=== PATIENT | male | born 1975 | race Caucasian/White ===

== ENCOUNTER 2025-01-08 22:12 | Emergency (ER) | payer OTHER, SELFPAY ==
--- NOTE | 2025-01-08 | ECG_ITS ---
Test Reason : SEIZURE Blood Pressure : */* mmHG Vent. Rate : 111 BPM Atrial Rate : 111 BPM P-R Int : 156 ms QRS Dur : 74 ms QT Int : 346 ms P-R-T Axes : 27 0 18 degrees QTcB Int : 470 ms Sinus tachycardia Inferior infarct , age undetermined Abnormal ECG No previous ECGs available Referred By: Generic ED Physician Electronically Signed By: CONSTANZA REYES MD
--- NOTE | ~2025-01-08 | CT_ITS ---
CLINICAL HISTORY: Seizure, R O skull fracture, bleed, mass effect CT head without contrast Comparison: None Findings: No intra-axial mass, midline shift, hydrocephalus, or acute hemorrhage. No significant atrophy-like change or white matter disease. Mucosal thickening in the maxillary sinuses, left greater than right. The orbits are within normal limits. No skull fracture. IMPRESSION: No acute intracranial abnormality. Bilateral maxillary sinusitis. This document has been electronically signed by: Roly Man MD on 01/09/2025 00:06:30
[2025-01-08 22:25] VITALS: BP 134/79; BP 150/97; PULSE 109; PULSE 115; RESP 20; TEMP 36.8; O2SAT 96; O2SAT 97; BMI 28.8
--- NOTE | 2025-01-08 22:28 | PC.NURSE ---
pt states his orthopedic nurse will call for an update and gives verbal permission for staff to share medical information.
--- NOTE | 2025-01-08 22:29 | PC.NURSE ---
MD Mckeon at bedside for eval. seizure precautions in place. on hall monitor. iv established by EMS.
--- NOTE | 2025-01-08 22:52 | ED_ITS ---
HPI - Seizure General Chief Complaint: Seizure Stated Complaint: FROM WORK, SEIZURE HX OF SEIZURES PER EMS Time Seen by Provider: 01/08/25 22:26 Source: patient Mode of arrival: ambulatory Limitations: no limitations History of Present Illness ED Provider: Dr. Willy Mckeon HPI Narrative: 49-year-old male he was brought to emergency department for evaluation of witnessed seizure. 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 He was sitting in a chair in his office. His bar waiter/waitress was in the room with him. The bar waiter/waitress is also a nurse and witnessed a tonic-clonic seizure that lasted less than 2 minutes. The patient did bite his tongue and was incontinent of urine. Patient states he was had 2 seizures in the past more than 2 years ago. He states that after the 2nd seizure, he did have a workup at [facility] which include the CT scan and a EEG. He states that the workup was negative and he was not taking any antiseizure medications. The patient states that he does drink alcohol frequent and he has been drinking more alcohol than usual. He states he drinks at least 3-4 schnapps drinks, 3 to 4 times a week. Patient is currently complaining of pain in his tongue secondary to the bite wounds. He also states that he has nausea. He denies headache, neck pain, chest pain, abdominal pain, back pain. Related Data Previous Rx's ?Medication ?Instructions ?Recorded chlordiazepoxide HCl 25 mg capsule See Rx Instructions .Route 01/09/25 .COMPLEX #20 caps folic acid 1 mg tablet 1 mg PO DAILY 90 days #90 tabs 01/09/25 thiamine HCl (vitamin B1) 100 mg 100 mg PO DAILY 90 days #90 caps 01/09/25 capsule Allergies Allergy/AdvReac Type Severity Reaction Status Date / Time No Known Allergies Allergy Verified 01/08/25 22:28 Review of Systems 2 Review of Systems: Yes all other systems are reviewed and are negative [facility] Past Medical History [facility] Narrative: Social history: He does smoke cigarettes. He does drink alcohol frequently. He denies drug use. Physical Exam 2 Vital Signs: Vital Signs: Last Vital Signs Temp 98.3 F 01/08/25 22:25 Pulse 109 H 01/08/25 22:25 Resp 20 01/08/25 22:25 BP 134/79 01/08/25 22:25 Pulse Ox 96 01/08/25 22:25 O2 Del Method Room Air 01/08/25 22:25 BMI result Body Mass Index 28.8 Vital signs revealed an elevated heart rate of 109 otherwise unremarkable Exam: General: Awake, alert in no distress Head: Normocephalic, atraumatic EENT: PERRL, Lids normal, sclera normal, conjunctiva normal, nose normal , ears normal, throat without erythema or exudates, patient does have bite wounds on the left lateral and tip of his tongue. Neck: Supple, no adenopathy Lung: breath sounds symmetric, no wheezing, rales or rhonchi Chest: symmetric movement, nontender Heart: regular rate and rhythm, normal S1, S2 no murmurs or rubs Abdomen: soft, non-tender, nondistended, normal bowel sounds Back: no vertebral tenderness, no CVAT Extremities: no deformities, moves all extremities symmetrically Neuro: Awake, alert, oriented, normal speech, cranial nerves intact, moves all extremities symmetrically Psych: Pleasant, cooperative Medications Administered Generic Name Dose Route Start Last Admin Trade Name Freq PRN Reason Stop Dose Admin Sodium Chloride 1,000 mls @ 999 mls/hr 01/08/25 22:42 01/08/25 22:53 Ns IV 01/08/25 23:42 999 mls/hr .Q1H1M STA Administration Discontinued Medications Generic Name Dose Route Start Last Admin Trade Name Freq PRN Reason Stop Dose Admin Lorazepam 2 mg 01/08/25 22:41 01/08/25 22:53 Lorazepam 2 Mg/Ml Vial IVPUSH 01/08/25 22:42 2 mg ONCE ONE Administration Ondansetron HCl 4 mg 01/08/25 22:41 01/08/25 22:53 Ondansetron Hcl 4 Mg/2 Ml Vial IVPUSH 01/08/25 22:42 4 mg ONCE ONE Administration Medical Decision Making Medical Decision Making MDM Narrative: 49-year-old male he was brought to emergency department for evaluation of witnessed seizure while he was sitting in a chair in his office, seizure lasted less than 2 minutes. Patient did bite his tongue and was incontinent of urine. Patient was postictal and is now back to his baseline. Patient had 2 separate seizures greater than 2 years ago and had a negative workup at [facility]. He was not on antiseizure medications. Patient does drink significant amount of alcohol weekly he states he has been drinking more than usual. He denies drug use. Vital signs revealed an elevated blood pressure. Physical examination revealed bite wounds to his tongue otherwise was unremarkable. Differential diagnosis: ?Includes but is not limited to alcohol withdrawal seizures, alcohol related seizures, seizure disorder, closed head injury, concussion, drug use, anemia, electrolyte abnormalities Course: 22:59 Patient's nausea was treated with Zofran 4 mg IV. Patient was also given Ativan 2 mg IV to try to raise his seizure threshold and prevent a seizure while he was here in the emergency department. I did tell the patient that given his witnessed seizure in the fact that this is his 3rd seizure he should be on antiseizure medications. At this time the patient was refusing antiseizure medications despite my warning that he could have another seizure and that if he were in a precarious situation he could secondary to his seizure. Patient was placed on a cardiac and O2 saturation monitor. Seizure pads were placed on his stretcher as well. 23:41 My interpretation patient's laboratory evaluation is as follows: Thrombocytopenia 91,000, elevated MCV 98.2. Elevated AST of 156. Elevated bilirubin 1.7. Lipase was normal. Alcohol was below detectable limits. The patient's low platelet count, elevated MCV and elevated AST are consistent with his alcohol use disorder. The fact that the patient was alcohol was below detectable limits makes me concerned that the patient may have had an alcohol withdrawal seizure given the amount of alcohol that he normally drinks. Admission/Observation Consideration of admission/observation: Escalation of care including admission/observation considered Lab Data 01/08/25 23:01 01/08/25 23:01 Labs: Lab Results 01/08/25 Range/Units 23:01 WBC 5.7 (4.8-10.8) X10*3/uL RBC 4.40 L (4.60-5.80) X10*6/uL Hgb 16.1 (14.0-18.0) g/dl Hct 43.2 (42.0-52.0) % MCV 98.2 H (80.0-98.0) fL MCH 36.6 H (27.0-33.0) pg MCHC 37.3 H (31.0-36.0) g/dl RDW 14.3 (11.0-16.0) % Plt Count 91 L (160-400) X10*3/uL MPV 10.4 (9.4-12.4) fL Immature Gran % (Auto) Cancelled Neut % (Auto) Cancelled Lymph % (Auto) Cancelled Nye % (Auto) Cancelled Eos % (Auto) Cancelled Baso % (Auto) Cancelled Lymph # (Auto) Cancelled Nye # (Auto) Cancelled Eos # (Auto) Cancelled Baso # (Auto) Cancelled Abs Immat Gran (auto) Cancelled Absolute Neuts (auto) Cancelled Absolute Nucleated RBC 0.000 (0.0-0.012) X10*3/uL Nucleated RBC % (auto) 0.0 (0.0-0.2) /100WBC Neutrophils % (Manual) 86 H (45-73) % Band Neutrophils % 1 L (3-5) % Lymphocytes % (Manual) 5 L (20-40) % Monocytes % (Manual) 7 (2-11) % Basophils % (Manual) 1 (0-2) % Abs Neuts (Manual) 5.0 (2.0-8.3) X10*3/uL Lymphocytes # (Manual) 0.3 L (1.2-4.9) X10*3/uL Monocytes # (Manual) 0.4 (0.1-1.2) X10*3/uL Basophils # (Manual) 0.1 (0.0-0.2) X10*3/uL Platelet Estimate DECREASED (NORMAL) Large Platelets PRESENT Plt Morphology Comment NOTED RBC Morphology NOTED Acanthocytes (Spur) 1+ (0-2) /OIF Sodium 138 (135-145) mmol/L Potassium 4.3 (3.3-5.1) mmol/L Chloride 101 (96-108) mmol/L Carbon Dioxide 18 L (22-29) mmol/L Anion Gap 23 H (12-20) BUN 8 L (9-16) mg/dL Creatinine 0.93 (0.5-1.4) mg/dL Estim Creat Clear Calc 107.8 Estimated GFR > 60 Random Glucose 113 (60-115) mg/dL Lactic Acid 10.7 H* (0.5-2.0) mmol/L Calcium 8.9 (8.4-10.2) mg/dL Total Bilirubin 1.7 H (0.0-1.0) mg/dL AST 156 H (5-37) U/L ALT 30 (0-40) U/L Alkaline Phosphatase 89 (39-117) U/L Total Creatine Kinase 136 (38-174) U/L Total Protein 7.0 (6.5-8.0) g/dL Albumin 3.8 (3.5-5.0) g/dL Lipase 57 (8-78) U/L Ethyl Alcohol < 10 mg/dL Independent Interpretation I performed an independent interpretation of an: CT Scan Interpretation: CT head without contrast Comparison: None Findings: No intra-axial mass, midline shift, hydrocephalus, or acute hemorrhage. No significant atrophy-like change or white matter disease. Mucosal thickening in the maxillary sinuses, left greater than right. The orbits are within normal limits. No skull fracture. IMPRESSION: No acute intracranial abnormality. Bilateral maxillary sinusitis. This document has been electronically signed by: Roly Man MD on 01/09/2025 00:06:30 Discharge Plan Discharge Clinical Impression: Alcohol withdrawal seizure Patient Disposition: Home, Self-Care Instructions: Alcohol Withdrawal (ED) Additional Instructions: Your platelet count was low at 90,000 (normal is 160,00 to 400,000) Your mean corpuscular volume (MCV) was high at 98.2 (normal is 80 to 98) Your liver tests revealed an elevated AST at 156 (normal5 to 37) These abnormalities are caused by drinking too much alcohol. The alcohol that your drinking is starting to affect your bone marrow and your liver. If you keep drinking alcohol you will developed cirrhosis of the liver and this is how people from alcohol use disorder. The fact that you were not able to drink alcohol over the last 4 days caused you to withdrawal from alcohol and cause you to have an alcohol withdrawal seizure I am going to treat your alcohol withdrawal with a 4 day tapering course of Librium (chlordiazepoxide). Day 1: Take Librium 50 mg every 6 hours Day 2: Take Librium 50 mg every 8 hours Day 3: Take Librium 50 mg every 12 hours Day 4: Take Librium 50 mg at night Follow the directions on the prescription bottle that you get from the pharmacy. Alcohol causes malnutrition and depleted your body of the essential mineral, thiamine and folate. Take thiamine 100 mg daily and folic acid 1 gram daily for 3 months. I also want you to take a multivitamin with iron daily and magnesium supplement twice a day. Please return to the emergency department if your symptoms get worse or if you develop any symptoms that are concerning to you. In the emergency department you did receive Ativan 2 mg IV, Librium 100 mg orally for your alcohol withdrawal and ondansetron 4 mg IV for nausea and vomiting Alcohol use disorder You were seen in the Emergency Department today for treatment of alcohol use disorder.? You may have been given medications to help with your withdrawal symptoms.? Please do not drink alcohol with them. This is very dangerous and can cause respiratory depression or other adverse reactions depending on the medication. If you would like to cut down or stop your alcohol use please consider calling our outpatient Addiction Treatment office:? [facility] ([id number] [address] [place] [id number] ? You have also been given a list of treatment providers in the area that can assist as well.? If you experience seizures, vomiting blood, black stools, falls, severe headache, chest pain, fevers, trouble breathing, hallucinations or any other concerns you need to call 911 or seek immediate care. Please stay hydrated. Prescriptions: New thiamine HCl (vitamin B1) 100 mg capsule 100 mg PO DAILY 90 Days Qty: 90 0RF folic acid 1 mg tablet 1 mg PO DAILY 90 Days Qty: 90 0RF chlordiazepoxide HCl 25 mg capsule See Rx Instructions .ROUTE .COMPLEX Qty: 20 0RF Rx Instructions: Day 1:50mg po q6h, Day2: 50mg po q8h, Day3:50mg po q12h, Day4:50 mg po hs Print Language: Turkmen
[2025-01-08] MEDS: ondansetron HCL 4 MG/2 ML VIAL IVPUSH (22:53)
[2025-01-08] MEDS: 0.9 % Sodium Chloride 1,000 ML 999 ML IV (22:53)
[2025-01-08] MEDS: LORazepam 2 MG/ML VIAL IVPUSH (22:53)
[2025-01-08 23:08] LABS: Hematocrit 43.2 % (42.0-52.0); Hemoglobin 16.1 g/dl (14.0-18.0); Mean Corpuscular HGB Conc 37.3 g/dl (31.0-36.0); Mean Corpuscular Hemoglobin 36.6 pg (27.0-33.0); Mean Corpuscular Volume 98.2 fL (80.0-98.0); Mean Platelet Volume 10.4 fL (9.4-12.4); Red Cell Distribution Width 14.3 % (11.0-16.0); WBC ABN SCTR FOR CBC 1
[2025-01-08 23:14] LABS: White Blood Count 5.7 X10*3/uL (4.8-10.8)
[2025-01-08 23:25] LABS: Alanine Aminotransferase 30 U/L (0-40); Albumin Level 3.8 g/dL (3.5-5.0); Alkaline Phosphatase 89 U/L (39-117); Anion Gap 23 (12-20); Aspartate Amino Transferase 156 U/L (5-37); Bilirubin Total 1.7 mg/dL (0.0-1.0); Blood Urea Nitrogen 8 mg/dL (9-16); Calcium 8.9 mg/dL (8.4-10.2); Carbon Dioxide 18 mmol/L (22-29); Chloride 101 mmol/L (96-108); Creatinine Clr Calc Pharmacy 107.8; Estimated Glomerular Filt Rate > 60; Ethanol < 10 mg/dL; Glucose Random 113 mg/dL (60-115); Lactic Acid 10.7 mmol/L (0.5-2.0); Lipase 57 U/L (8-78); Potassium 4.3 mmol/L (3.3-5.1); Sodium 138 mmol/L (135-145)
[2025-01-08 23:33] LABS: Acanthocytes 1+ (0-2) /OIF; Band Neutrophils Percent 1 % (3-5); Basophils Abs Manual 0.1 X10*3/uL (0.0-0.2); Basophils Percent Manual 1 % (0-2); Large Platelet PRESENT; Lymphocytes Absolute Manual 0.3 X10*3/uL (1.2-4.9); Lymphocytes Percent Manual 5 % (20-40); Monocytes Absolute Manual 0.4 X10*3/uL (0.1-1.2); Monocytes Percent Manual 7 % (2-11); Neutrophils Percent Manual 86 % (45-73); Platelet Estimate DECREASED (NORMAL); Platelet Morphology Comment NOTED; RBC Morphology NOTED
[2025-01-08 23:34] LABS: Platelet Count 91 X10*3/uL (160-400)
--- NOTE | 2025-01-08 23:39 | PC.NURSE ---
pt return from ct scan, axox4 resting comfortably. resp even and unlabored. call oliva within reach.
[2025-01-09 00:20] VITALS: BP 142/88; PULSE 110; RESP 16; TEMP 37; O2SAT 98
[2025-01-09 01:05] LABS: Reflex Lactate? Lactic Acid Added
[2025-01-09] MEDS: chlordiazePOXIDE HCl 25 MG CAPSULE 100 MG PO (01:21)
[2025-01-09] MEDS: Omeprazole 20 MG CAPSULE.DR PO (01:31)
[2025-01-09] MEDS: Ondansetron ODT 4 MG TAB.RAPDIS TRANSLINGU (01:31)
--- NOTE | 2025-01-09 01:35 | MHC.EDTECH ---
Provider said not to draw repeated lactic acid .
[2025-01-09 01:43] VITALS: BP 145/92; PULSE 99; RESP 16; TEMP 37; O2SAT 98
== END 2025-01-09 01:45 | disposition home or self-care (01) ==
PROVIDERS: Emergency Provider Emergency Medicine Emergency Medical Services; PCP Internal Medicine
DX: F10.239 Alcohol dependence with withdrawal, unspecified (principal); G40.501 Epileptic seizures related to external causes, not intractable, with status epilepticus; J32.0 Chronic maxillary sinusitis; R11.0 Nausea; F17.210 Nicotine dependence, cigarettes, uncomplicated; Y90.0 Blood alcohol level of less than 20 mg/100 ml; Z51.81 Encounter for therapeutic drug level monitoring; Z79.899 Other long term (current) drug therapy
CPT/HCPCS: 36415; 70450; 80053; 80307; 82550; 83605; 83690; 85007; 85027; 93005; 96361; 96374; 96375; 99285; J2060; J2405

== ENCOUNTER → 2025-01-08 22:30 | Outpatient (BNV) | payer SELFPAY | PROVIDERS: Emergency Provider Emergency Medicine Emergency Medical Services; PCP Internal Medicine; Visit Provider Internal Medicine Cardiovascular Disease | DX: R00.0 Tachycardia, unspecified (principal) | CPT/HCPCS: 93010 ==

== ENCOUNTER → 2025-01-08 22:42 | Outpatient (BNV) | payer SELFPAY | PROVIDERS: Emergency Provider Emergency Medicine Emergency Medical Services; PCP Internal Medicine; Visit Provider Student in an Organized Health Care Education/Training Program | DX: J01.00 Acute maxillary sinusitis, unspecified (principal) | CPT/HCPCS: 70450 ==